=== PATIENT | female | born 2000 | race Caucasian/White ===

== ENCOUNTER → 2022-07-03 | Outpatient (CLI) | payer BC ==
[2022-07-03 18:34] LABS: HCT 31.2 % (37.2-46.3); HGB 10.2 g/dL (12.0-15.0); MCH 30.1 pg (27.0-32.0); MCHC 32.7 g/dL (32.0-37.0); Mean Platelet Volume 9.7 fL (9.5-12.2); NRBC Per 100 WBC 0 /100 WBCS (0.0-0.0); Platelet Count 276 X 10*3/uL (140-440); RBC 3.39 X 10*6/uL (4.10-5.20); RDW 12.9 % (11.5-14.5); WBC 12.04 X 10*3/uL (4.50-10.00)
== END | disposition home or self-care (01) ==
LOC: LABWHC1 10:45
PROVIDERS: ATTEND Obstetrics & Gynecology
DX: Z34.82 Encounter for supervision of other normal pregnancy, second trimester (principal); Z3A.00 Weeks of gestation of pregnancy not specified
CPT/HCPCS: 36415; 82950; 85027

== ENCOUNTER → 2022-07-12 | Outpatient (CLI) | payer BC ==
[2022-07-12 13:10] LABS: Glucose 3 Hour, Gest 145 mg/dL
== END | disposition home or self-care (01) ==
LOC: EEVIPCON 08:24 → LABWHC1 08:24
PROVIDERS: ATTEND Obstetrics & Gynecology
DX: O99.810 Abnormal glucose complicating pregnancy (principal); Z3A.00 Weeks of gestation of pregnancy not specified
CPT/HCPCS: 36415; 82951; 82952

== ENCOUNTER 2022-07-27 12:34 | Outpatient (CLI) | payer BC ==
[2022-07-27 13:38] VITALS: BP 134/73; PULSE 85; RESP 16; TEMP 98
--- NOTE | 2022-08-03 08:57 | P.MSEPDOC ---
Presenting Problems - Arrival Data Date of Arrival on Unit: 07/27/22 Time of Arrival on Unit: 12:34 Mode of Transport: Ambulatory - Complaint OB-Reason for Admission/Chief Complaint: Decreased Movement Medical History - Information : 1 Para: 0 Term: 0 : 0 Abortions: Spontaneous or Elective: 0 Number of Living Children: 0 - Gestational Age Gestational Age by MINA (wks/days): 29 Weeks and 4 Days - History Complications: Multiple Review of Systems - Review of Systems Constitutional: No problems Breast: No problems ENT: No problems Cardiovascular: No problems Respiratory: No problems Gastrointestinal: No problems Genitourinary: No problems Musculoskeletal: No problems Neurological: No problems Skin: No problems Vital Signs - Temperature Temperature: 98 F Temperature Source: Temporal Artery Scan - Pulse Right Sitting Pulse Rate: 85 Pulse Assessment Method: Automatic Cuff - Respirations Respiratory Rate: 16 Oxygen Delivery Method: Room Air - Blood Pressure Right Arm Blood Pressure: 134/73 Blood Pressure Mean: 93 Blood Pressure Source: Automatic Cuff Medical Screen Scoring - Assessment - Baby A Baseline FHR: 125 Heart Rate - NICHD Category: Category I (Normal) NST: Reactive - Assessment - Baby B Baseline FHR: 135 Heart Rate - NICHD Category: Category I (Normal) NST: Reactive Physician Notification - Physician Notified Physician Notified Date: 07/27/22 Physician Notified Time: 13:24 Physician: Sugey Peacock Order Received: Yes (d/c home) Maternal Triage Index - Prompt/Priority 3 Prompt Priority 3: Yes Criteria Met for Priority 3: decreased movmeent, reactive nst for twins Disposition - Disposition OB Disposition: Discharge to home Discharge Date: 07/27/22 Discharge Time: 13:32 I agree with the RN Medical Screening Exam: Yes Case reviewed; plan agreed upon as documented in EMR&OBIX.: Yes Diagnosis: DECREASED MOVEMENTS, THIRD TRIMESTER, FETUS 1
== END 2022-07-27 13:32 | disposition home or self-care (01) ==
LOC: FBPOP 12:34
PROVIDERS: ATTEND Obstetrics & Gynecology
DX: O36.8130 Decreased fetal movements, third trimester, not applicable or unspecified (principal); O36.8931 Maternal care for other specified fetal problems, third trimester, fetus 1; Z3A.29 29 weeks gestation of pregnancy; Z88.0 Allergy status to penicillin
CPT/HCPCS: 59025; 99213

== ENCOUNTER 2022-09-13 14:11 | Outpatient (CLI) | payer BC ==
[2022-09-13 17:20] VITALS: BP 144/78; PULSE 98; RESP 16; TEMP 97.8
--- NOTE | 2022-09-17 23:26 | P.MSEPDOC ---
Presenting Problems - Arrival Data Date of Arrival on Unit: 09/13/22 Time of Arrival on Unit: 14:11 Mode of Transport: Ambulatory - Complaint OB-Reason for Admission/Chief Complaint: NST Medical History - Information : 1 Para: 0 Term: 0 : 0 Abortions: Spontaneous or Elective: 0 Number of Living Children: 0 - Gestational Age Gestational Age by MINA (wks/days): 36 Weeks and 3 Days - History Complications: GDM Review of Systems - Review of Systems Constitutional: No problems Breast: No problems ENT: No problems Cardiovascular: No problems Respiratory: No problems Gastrointestinal: No problems Genitourinary: No problems Musculoskeletal: No problems Neurological: No problems Skin: No problems Vital Signs - Temperature Temperature: 97.8 F Temperature Source: Temporal Artery Scan - Pulse Pulse Oximetery Pulse Rate: 98 Pulse Assessment Method: Pulse Oximetry - Respirations Respiratory Rate: 16 Oxygen Delivery Method: Room Air O2 Sat by Pulse Oximetry: 97 - Blood Pressure Right Arm Blood Pressure: 144/78 Blood Pressure Mean: 100 Blood Pressure Source: Automatic Cuff Medical Screen Scoring - Assessment - Baby A Baseline FHR: 140 Heart Rate - NICHD Category: Category I (Normal) NST: Reactive - Assessment - Baby B Baseline FHR: 125 Heart Rate - NICHD Category: Category I (Normal) NST: Reactive Physician Notification - Physician Notified Physician Notified Date: 09/13/22 Physician Notified Time: 14:11 Physician: Sugey Peacock Order Received: No (Per written order discharge when reactive.) Maternal Triage Index - Maternal Triage Index Presenting for scheduled procedure w/no complaint: Yes - Scheduled/Requesting Priority 5 Scheduled/Requesting Priority 5: No Disposition - Disposition OB Disposition: Discharge to home Discharge Date: 09/13/22 Discharge Time: 15:02 I agree with the RN Medical Screening Exam: Yes Case reviewed; plan agreed upon as documented in EMR&OBIX.: Yes Diagnosis: TWIN , MONOCHORIONIC/DIAMNIOTIC, THIRD TRIMESTER
== END 2022-09-13 15:02 | disposition home or self-care (01) ==
LOC: FBPOP 14:11
PROVIDERS: ATTEND Obstetrics & Gynecology
DX: O30.013 Twin pregnancy, monochorionic/monoamniotic, third trimester (principal); O24.419 Gestational diabetes mellitus in pregnancy, unspecified control; Z3A.36 36 weeks gestation of pregnancy; Z88.0 Allergy status to penicillin
CPT/HCPCS: 59025; 99213

== ENCOUNTER 2022-09-17 05:42 | Inpatient (IN) | payer BC ==
--- NOTE | 2022-09-16 16:52 | P.HPOB ---
History of Present Illness H&P Date: 09/16/22 Chief Complaint: Monochorionic/diamniotic twin gestation This is a 22 y.o. female, 2, para 0, with an estimated date of confinement of 10/08/2022, estimated gestational age of 37-0/7 weeks, who presents for induction of labor due to monochorionic, diamniotic twin gestation. She has seen [facility] and has been getting regular surveillance. She also has gestational diabetes and her sugars have been controlled with Metformin. Her last ultrasound in the office showed twin A, vtx, 6#8oz, and twin B, vtx, 5#8oz with a 15.9% discordancy. Prior to this ultrasound, growth had been concordant. She is feeling irregular contractions and pressure. [facility] has recommended delivery between 34-0/7 and 37-6/7 weeks. labs: Hepatitis B surface antigen-neg RPR-NR Rubella-immune Blood type-A+ Antibody screen-neg HIV-NR Hemoglobin-12 Toxoplasma-neg Random glucose-75 1 hr. GTT-154 3 hr. GTT->2 values high GBS-neg OB Hx: . 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 Works in [email or web address] and [employer]. Review of Systems Constitutional: Denies chills, Denies fever Eyes: denies blurred vision, denies pain Ears, nose, mouth and throat: Denies headache, Denies sore throat Cardiovascular: Denies chest pain, Denies shortness of breath Respiratory: Denies cough Gastrointestinal: Reports abdominal pain (irregular contractions) Genitourinary: Reports pelvic pain, Reports Musculoskeletal: Reports low back pain Integumentary: Denies pruritus, Denies rash Neurological: Denies numbness, Denies weakness Psychiatric: Denies anxiety, Denies depression Past Medical History Additional Past Medical History / Comment(s): Gestational diabetes-on Metformin History of Any Multi-Drug Resistant Organisms: None Reported Past Surgical History: No Surgical Hx Reported Past Anesthesia/Blood Transfusion Reactions: No Reported Reaction Past Psychological History: No Psychological Hx Reported Smoking Status: Former smoker Past Alcohol Use History: None Reported Past Drug Use History: None Reported - Past Family History Mother Family Medical History: Hypertension Medications and Allergies Home Medications Medication Instructions Recorded Confirmed Type Aspirin [Children's Aspirin] 81 mg PO DAILY 08/09/22 09/13/22 History metFORMIN HCL 500 mg PO AC-BRKFST 08/09/22 09/13/22 History Vit No.179/Iron/Folic 1 each PO DAILY 08/20/22 09/13/22 History [ Tablet] metFORMIN HCL 1,000 mg PO AC-SUPPER 09/16/22 09/16/22 History Allergies Allergy/AdvReac Type Severity Reaction Status Date / Time Penicillins Allergy Rash/Hives Verified 09/13/22 14:27 Exam Osteopathic Statement: *. No significant issues noted on an osteopathic structural exam other than those noted in the History and Physical/Consult. HEENT: within normal limits Heart: regular rate and rhythm Lungs: clear to auscultation bilaterally Abdomen: , non-tender heart tones: A-130's, B-140's by doppler Cervix: 2.5 cm/80%/-2 Extremities: neg. Elizabeth's Assessment and Plan (1) 37 weeks gestation of Status: Acute Code(s): Z3A.37 - 37 WEEKS GESTATION OF SNOMED Code(s): 24923598 (2) Monochorionic diamniotic twin gestation Status: Acute Code(s): O30.039 - TWIN , MONOCHORIONIC/DIAMNIOTIC, UNSP TRIMESTER SNOMED Code(s): 60288640 (3) Gestational diabetes Status: Acute Code(s): O24.419 - GESTATIONAL DIABETES MELLITUS IN , UNSP CONTROL SNOMED Code(s): 18510983 Plan: Proceed with oxytocin induction of labor. Expectant management. Epidural anesthesia if desired. Patient has been counseled on risk of 2nd twin turning after 1st twin delivers which may require emergent section. She would like to attempt vaginal delivery. Will monitor sugars while in labor.
[2022-09-17] MEDS: LACTATED RINGERS 1,000 ML IV SCH ×2 (05:55→12:22)
[2022-09-17 06:03] LABS: Glucose,Whole Blood 92 mg/dL (70-110)
[2022-09-17] MEDS ORDERED: OXYTOCIN 30 UNITS/500 ML NS 30 UNIT in SALINE 1 500ML.BAG IV SCH ×2 (06:03→23:04)
[2022-09-17] MEDS ORDERED: LIDOCAINE 1% (10MG/ML) FOR IV START INTRADERMA PRN (06:03)
[2022-09-17] MEDS ORDERED: LIDOCAINE 0.5% (PF) 5 MG/ML (50 ML SDV) SQ PRN (06:03)
[2022-09-17] MEDS ORDERED: TRANEXAMIC ACID IN NACL,ISO-OS 1,000 MG in EMPTY BAG 1 BAG IV PRN (06:03)
[2022-09-17] MEDS ORDERED: miSOPROStoL 200 MCG TAB PO PRN (06:03)
[2022-09-17] MEDS ORDERED: TERBUTALINE 1 MG/ML VIAL SQ PRN (06:03)
[2022-09-17] MEDS ORDERED: CARBOPROST TROMETHAMINE 250 MCG/ML 1 ML AMP IM PRN (06:03)
[2022-09-17] MEDS ORDERED: OXYTOCIN 10 UNIT/ML 1 ML VIAL IM PRN (06:03)
[2022-09-17] MEDS ORDERED: METHYLERGONOVINE 0.2 MG/ML 1 ML AMP IM PRN (06:03)
[2022-09-17 06:21] LABS: Basophils % (A) 0 %; Eosinophils # (A) 0.1 k/uL (0-0.7); Eosinophils % (A) 2 %; HCT 32.6 % (34.0-46.0); HGB 11.1 gm/dL (11.4-16.0); Lymphocytes # (A) 2.1 k/uL (1.0-4.8); Lymphocytes % (A) 28 %; MCH 30.4 pg (25.0-35.0); MCV 89.4 fL (80.0-100.0); Mean Platelet Volume 9.2; Monocytes # (A) 0.5 k/uL (0-1.0); Monocytes % (A) 7 %; Neutrophils # (A) 4.6 k/uL (1.3-7.7); Neutrophils % (A) 61 %; Platelet Count 212 k/uL (150-450); RBC 3.64 m/uL (3.80-5.40); RDW 13.1 % (11.5-15.5); WBC 7.4 k/uL (3.8-10.6)
[2022-09-17 08:05] LABS: Glucose,Whole Blood 79 mg/dL (70-110)
[2022-09-17] MEDS: BUTORPHANOL 1 MG/ML 1 ML VIAL IV PRN ×3 (10:36→14:13)
[2022-09-17 11:43] LABS: Glucose,Whole Blood 84 mg/dL (70-110)
[2022-09-17 12:17] LABS: Glucose,Whole Blood 77 mg/dL (70-110)
[2022-09-17] MEDS ORDERED: ROPIVACAINE 100 MG, fentaNYL (PF). 200 MCG in SODIUM CHLORIDE 0.9% 76 ML EPIDURAL ONE (15:59)
[2022-09-17] MEDS ORDERED: ROPIVACAINE 5 MG/ML 20 ML AMPULE ONE (16:15)
[2022-09-17] MEDS ORDERED: fentaNYL (PF) 50 MCG/ML 5 ML AMP ONE (16:15)
[2022-09-17] MEDS ORDERED: SODIUM CHLORIDE 0.9% 100 ML BAG ONE ×2 (16:15→21:56)
[2022-09-17 19:20] LABS: Glucose,Whole Blood 78 mg/dL (70-110)
[2022-09-17] MEDS ORDERED: CITRIC ACID-SODIUM CITRATE 15 ML CUP PO ONE (21:43)
[2022-09-17] MEDS ORDERED: SUCCINYLCHOLINE CHLORIDE 200 MG/10 ML VIAL IV ONE (21:56)
[2022-09-17] MEDS ORDERED: PROPOFOL 10 MG/ML 20 ML VIAL IV ONE (21:56)
[2022-09-17] MEDS ORDERED: OXYTOCIN 30 UNITS/500 ML NS BAG IV ONE (21:56)
[2022-09-17] MEDS ORDERED: ceFAZolin 1,000 MG VIAL ONE (21:56)
[2022-09-17] MEDS ORDERED: KETOROLAC 15 MG/ML 1 ML VIAL ONE (21:56)
[2022-09-17] MEDS ORDERED: ONDANSETRON 4 MG/2 ML VIAL ONE (21:56)
[2022-09-17] MEDS ORDERED: fentaNYL (PF) 50 MCG/ML 2 ML AMP ONE (21:56)
[2022-09-17] MEDS ORDERED: diphenhydrAMINE 50 MG CAP PO PRN (23:04)
[2022-09-17] MEDS ORDERED: diphenhydrAMINE 25 MG CAP PO PRN (23:04)
[2022-09-17] MEDS ORDERED: METOCLOPRAMIDE 5 MG/ML 2 ML VIAL IVP PRN (23:04)
[2022-09-17] MEDS ORDERED: diphenhydrAMINE 50 MG/ML 1 ML VIAL IVP PRN ×2 (23:04)
[2022-09-17] MEDS ORDERED: ONDANSETRON 4 MG/2 ML VIAL IVP PRN (23:04)
[2022-09-17] MEDS ORDERED: HYDROmorphone 1 MG/ML 1 ML SYRINGE IVP PRN (23:04)
[2022-09-17] MEDS ORDERED: LANOLIN CREAM 5 GM TUBE TOPICAL PRN (23:04)
[2022-09-17] MEDS ORDERED: HYDROmorphone 0.5 MG/0.5 ML SYRINGE IVP PRN (23:04)
[2022-09-17] MEDS ORDERED: ZOLPIDEM 5 MG TAB PO PRN (23:04)
[2022-09-17] MEDS ORDERED: NALOXONE 0.4 MG/ML 1 ML VIAL IV PRN (23:04)
--- NOTE | 2022-09-17 23:13 | P.OP ---
Date of Procedure: 09/17/22 Preoperative Diagnosis: 1. Intrauterine at 37-0/7 weeks. 2. Monochorionic diamniotic twin gestation. 3. Gestational diabetes. 4. Failure to progress. Postoperative Diagnosis: Same Procedure(s) Performed: Primary low transverse section Anesthesia: GETA, epidural Surgeon: Sugey Peacock Stock Saw Operator #1: Rubina Ortega Estimated Blood Loss (ml): 950 Pathology: other (Placentas) Condition: stable Disposition: floor Indications for Procedure: This is a 22-year-old female 2 para 0 with monochorionic diamniotic twin gestation at 37-0/7 weeks who presented for induction of labor. Her was complicated by gestational diabetes controlled with metformin. She underwent oxytocin induction of labor and did receive initially Stadol followed by epidural. She reached a maximum of 9 cm and then her cervix became swollen. Her epidural started to fail at this point in she was requesting delivery. She was counseled regarding section and wishes to proceed with delivery. I have discussed the risks, benefits, and alternative therapies for the above- mentioned procedure and for both sedation/anesthesia as well as necessary blood products administration, if indicated, as they pertain to this patient. The patient has indicated her understanding and acceptance of the risks and procedures discussed. Operative Findings: Baby A is a viable male in the vertex presentation with scores of 8 at 1 minute and 9 at 5 minutes and weight of 6 lbs. 3 oz. There was noted to be some caput. Baby B is noted to be in a face/Chin presentation and did deliver with scores of 8 at 1 minute and 9 at 5 minutes and weight of 5 lbs. 6 oz.. The placenta was then delivered intact with three-vessel cords noted on both cords. A thin membrane was noted. There is noted to be a fairly large submucosal fibroid noted anteriorly. Otherwise uterus tubes and ovaries are noted to be normal. Description of Procedure: The patient is taken to the operating room where she is placed in the dorsal supine position with leftward tilt after epidural anesthesia is bolused. She is prepped and draped in the normal sterile fashion. Skin was tested and found to be inadequately anesthetized. She was therefore given general anesthesia. A Pfannenstiel skin incision was made with a scalpel. A second knife was used to carry the incision down to the underlying layer of fascia. The fascia was nicked in the midline with a scalpel and then extended laterally bilaterally with Lerma scissors. The anterior lip of the fascia was grasped with 2 Kari clamps and then dissected off the underlying rectus muscle in the midline with Leram scissors. The inferior aspect of the fascial incision was grasped with 2 Kari clamps and dissected off the underlying rectus muscle and the midline with Lerma scissors. Next the peritoneum layer was tented up with 2 hemostats and then entered sharply with the scalpel. The incision is extended superiorly and inferiorly with Metzenbaum scissors. Next a DeLee retractor is placed. The vesicouterine peritoneum is entered sharply with Metzenbaum scissors and extended laterally bilaterally with Metzenbaum scissors and then the bladder flap is pushed inferiorly. The lower uterine segment is incised in transverse fashion with the scalpel and then bluntly entered with a hemostat. Clear fluid is noted. The incision was then extended laterally bilaterally with 2 fingers. Next the baby A's head is delivered through the incision. Nose and mouth are bulb suctioned. The remainder of the is easily delivered and placed on mother's abdomen. Cord is clamped and cut. Infant is taken to warmer by nursing staff. Next the baby B head is palpated and brought to the incision. A hemostat is used to rupture the bag of water and clear fluid is noted. At this point the baby is presenting in almost a chin/face lie. Infant's head is rotated so that the back of the head delivers first and then the remainder the is delivered, cord is clamped and cut, and is taken to warmer for evaluation. Uterine fundus is gently massaged and placenta is delivered manually. Uterus is exteriorized and cleared of all clots and debris. There is noted to be a fairly large submucosal fibroid anteriorly inside the uterus. Uterine incision is closed with 0 Vicryl suture in a running locked fashion. A second layer of 0 Vicryl suture is used in a running fashion for hemostasis. Once adequate hemostasis as assured, the vesicouterine peritoneum is reapproximated with 2-0 Vicryl suture in a running fashion. Posterior cul-de-sac is suctioned of all clots and debris. Uterus is returned to the abdomen. Incision is noted to be hemostatic. Peritoneal layer is closed with 0 Vicryl suture in a running fashion. Muscle layer is reapproximated with 0 Vicryl suture in interrupted fashion. Fascia layer is then closed with 0 PDS suture with 2 sutures meeting in the midline and the knots buried in either side and in the midline. The subcutaneous tissue was then closed with 2-0 Vicryl suture. Skin layer was then closed with darrell. All sponge and needle counts are correct. The patient is taken to recovery room in stable condition.
[2022-09-17] MEDS ORDERED: HYDROmorphone PCA 10 MG/50 ML BAG IV PRN (23:14)
[2022-09-18] MEDS: LACTATED RINGERS 1,000 ML IV SCH ×2 (01:57→03:15)
[2022-09-18] MEDS: ACETAMINOPHEN TAB 500 MG TAB PO SCH ×4 (04:07→21:54)
[2022-09-18] MEDS: IBUPROFEN 600 MG TAB PO SCH ×3 (04:08→20:40)
--- NOTE | 2022-09-18 07:38 | P.PNOBGPC ---
Subjective - Subjective Principal diagnosis: Status post primary low transverse section POD#1 Interval history: Patient is doing well. Pain is fairly well controlled at this time. She is only used her CASHIER PAYMENTS RECEIVED couple times. She has not ambulated yet. Bleeding has been moderate. She denies any flatus yet. Patient reports: Reports pain well controlled, Denies ambulating normally [place]: doing well, other (Baby B is in level I nursery with some sugar issues) Objective - Vital Signs Latest vital signs: Vital Signs Temp Pulse Resp BP Pulse Ox 09/18/22 03:30 98.6 F 92 14 128/72 96 09/18/22 00:54 99.4 F 109 H 18 133/71 94 L 09/18/22 00:24 107 H 18 136/82 97 09/17/22 23:54 111 H 18 127/76 95 09/17/22 23:39 105 H 18 122/83 97 09/17/22 23:24 100 18 144/74 98 09/17/22 23:14 99 09/17/22 23:09 111 H 18 136/98 99 09/17/22 22:54 97.9 F 114 H 18 132/92 99 Intake and Output 09/17/22 09/18/22 09/18/22 22:59 06:59 14:59 Intake Total 500 Output Total 950 1161 Balance -950 -661 Intake: IV 500 Invasive Line 1 500 Output: Urine 1000 Output, Quantitative 950 161 Blood Loss Other: Voiding Method Indwelling Catheter - Exam Extremities: Present: normal. Absent: tenderness Abdomen: Present: normal appearance, soft (Faint bowel sounds 4). Absent: distention, tenderness Incision: Present: normal, dry, intact. Absent: erythematous Uterus: Present: normal, firm. Absent: tenderness Assessment and Plan Assessment: Status post primary low transverse section for delivery of twin gestation postoperative day #1 (1) 37 weeks gestation of Current Visit: No Status: Acute Code(s): Z3A.37 - 37 WEEKS GESTATION OF SNOMED Code(s): 35466115 (2) Monochorionic diamniotic twin gestation Current Visit: No Status: Acute Code(s): O30.039 - TWIN , MONOCHORIONIC/DIAMNIOTIC, UNSP TRIMESTER SNOMED Code(s): 98798758 (3) Gestational diabetes Current Visit: No Status: Acute Code(s): O24.419 - GESTATIONAL DIABETES MELLITUS IN , UNSP CONTROL SNOMED Code(s): 05377173 Plan: Will advance diet as tolerated after flatus. Will ambulate and remove catheter this morning. Will switch to oral pain medications today.
[2022-09-18 07:43] LABS: Basophils % (A) 0 %; Eosinophils % (A) 0 %; HCT 26.9 % (34.0-46.0); Lymphocytes # (A) 1.3 k/uL (1.0-4.8); Lymphocytes % (A) 10 %; MCH 30.1 pg (25.0-35.0); MCHC 33.2 g/dL (31.0-37.0); MCV 90.7 fL (80.0-100.0); Mean Platelet Volume 8.8; Monocytes # (A) 0.5 k/uL (0-1.0); Monocytes % (A) 4 %; Neutrophils # (A) 11.4 k/uL (1.3-7.7); Neutrophils % (A) 85 %; Platelet Count 172 k/uL (150-450); RBC 2.96 m/uL (3.80-5.40); RDW 13.4 % (11.5-15.5); WBC 13.4 k/uL (3.8-10.6)
[2022-09-18] MEDS: SENNOSIDES-DOCUSATE SODIUM 1 EACH TAB PO SCH ×2 (07:48→20:40)
[2022-09-18] MEDS: KETOROLAC 15 MG/ML 1 ML VIAL IVP SCH (07:48)
[2022-09-18 08:16] LABS: HGB 8.9 gm/dL (11.4-16.0)
[2022-09-18] MEDS: ACETAMINOPHEN IV (For NPO) 1,000 MG in EMPTY BAG 1 BAG IVPB SCH ×2 (08:54→14:37)
[2022-09-18] MEDS: SIMETHICONE 80 MG CHEWABLE PO PRN (17:56)
[2022-09-19] MEDS: ACETAMINOPHEN TAB 500 MG TAB PO SCH ×4 (02:00→14:56)
[2022-09-19] MEDS: IBUPROFEN 600 MG TAB PO SCH ×6 (04:22→23:43)
[2022-09-19] MEDS: SENNOSIDES-DOCUSATE SODIUM 1 EACH TAB PO SCH ×2 (08:02→19:47)
[2022-09-19] MEDS: SIMETHICONE 80 MG CHEWABLE PO PRN (08:03)
--- NOTE | 2022-09-19 08:54 | P.PNOBGPC ---
Subjective - Subjective Principal diagnosis: Status post primary postoperative day #2 Interval history: Patient is doing better. She is passing some flatus but no bowel movement yet. She is urinating without difficulty. Pain is fairly well controlled with oral pain medications. She is working on breast-feeding baby A. Baby B is in the nursery. Patient reports: Reports appetite normal, Reports voiding normally, Reports pain well controlled, Reports ambulating normally : doing well, nursing well, other (Baby B is in level I nursery) Objective - Vital Signs Latest vital signs: Vital Signs Temp Pulse Resp BP Pulse Ox 09/19/22 08:26 97.6 F 75 18 138/80 98 09/18/22 23:24 98.3 F 86 18 126/70 09/18/22 16:00 98.3 F 94 18 114/63 96 09/18/22 12:00 98.4 F 95 16 119/67 95 Intake and Output 09/18/22 09/19/22 09/19/22 22:59 06:59 14:59 Intake Total 500 Balance 500 Intake: Oral 500 - Exam Extremities: Present: normal. Absent: tenderness, edema Abdomen: Present: normal appearance, soft (Positive bowel sounds 4). Absent: distention, tenderness Incision: Present: normal, dry, intact. Absent: erythematous Uterus: Present: normal, firm, tenderness Assessment and Plan Assessment: Status post primary low transverse section postoperative day #2 (1) 37 weeks gestation of Current Visit: No Status: Acute Code(s): Z3A.37 - 37 WEEKS GESTATION OF SNOMED Code(s): 62523169 (2) Monochorionic diamniotic twin gestation Current Visit: No Status: Acute Code(s): O30.039 - TWIN , MONOCHORIONIC/DIAMNIOTIC, UNSP TRIMESTER SNOMED Code(s): 29731009 (3) Gestational diabetes Current Visit: No Status: Acute Code(s): O24.419 - GESTATIONAL DIABETES MELLITUS IN , UNSP CONTROL SNOMED Code(s): 90061532 Plan: Continue with postoperative and care. Will continue ambulation. Oral pain medications.
[2022-09-19] MEDS: KETOROLAC 15 MG/ML 1 ML VIAL IVP SCH ×4 (09:48→12:43)
[2022-09-19] MEDS: LACTATED RINGERS 1,000 ML IV SCH ×5 (09:48→22:23)
[2022-09-20] MEDS: ACETAMINOPHEN TAB 500 MG TAB PO SCH ×6 (00:54→20:50)
[2022-09-20] MEDS: IBUPROFEN 600 MG TAB PO SCH ×3 (06:48→18:59)
[2022-09-20 07:54] VITALS: RESP 16
[2022-09-20] MEDS: SENNOSIDES-DOCUSATE SODIUM 1 EACH TAB PO SCH ×2 (09:01→20:50)
--- NOTE | 2022-09-20 09:27 | P.PNOBGPC ---
Subjective - Subjective Principal diagnosis: Status post primary postoperative day #3 Interval history: Patient is doing okay. She is ambulating. She is passing some flatus but no bowel movement yet. Her pain has been fairly well-controlled with ibuprofen and Tylenol. She has used oxycodone a couple times. She is working on breast- feeding but is supplementing a little bit of formula for baby A. Baby B is still in level I nursery. Bleeding has been minimal. Patient reports: Reports appetite normal, Reports voiding normally, Reports ambulating normally [place]: doing well, other (Baby B is in level I nursery) Objective - Vital Signs Latest vital signs: Vital Signs Temp Pulse Resp BP Pulse Ox 09/20/ 07:51 97.9 F 81 16 129/75 98 09/20/22 00:00 98 F 70 18 126/74 99 09/19/22 15:15 97.8 F 89 18 125/80 98 Intake and Output 09/19/09/20/22 09/20/22 22:59 06:59 14:59 Other: # Voids 1 - Exam Extremities: Present: normal. Absent: tenderness Abdomen: Present: normal appearance, soft (Positive bowel sounds 4). Absent: distention, tenderness Incision: Present: normal, dry, intact. Absent: erythematous Uterus: Present: normal, firm. Absent: tenderness Assessment and Plan Assessment: Status post primary low transverse section postoperative day #3 (1) 37 weeks gestation of Current Visit: No Status: Acute Code(s): Z3A.37 - 37 WEEKS GESTATION OF SNOMED Code(s): 83177176 (2) Monochorionic diamniotic twin gestation Current Visit: No Status: Acute Code(s): O30.039 - TWIN , MONOCHORIONIC/DIAMNIOTIC, UNSP TRIMESTER SNOMED Code(s): 40783944 (3) Gestational diabetes Current Visit: No Status: Acute Code(s): O24.419 - GESTATIONAL DIABETES MELLITUS IN , UNSP CONTROL SNOMED Code(s): 57232764 Plan: Continue with postoperative and care today. Anticipate discharge home tomorrow. Continue with stool softeners.
[2022-09-20] MEDS: SIMETHICONE 80 MG CHEWABLE PO PRN ×3 (09:52→18:59)
[2022-09-21] MEDS: IBUPROFEN 600 MG TAB PO SCH ×3 (00:45→14:53)
[2022-09-21] MEDS: ACETAMINOPHEN TAB 500 MG TAB PO SCH ×2 (03:18→09:42)
[2022-09-21 08:00] VITALS: BP 129/77; PULSE 80; TEMP 98.5
--- NOTE | 2022-09-21 08:44 | P.DS ---
Providers Date of admission: 09/17/22 05:42 Expected date of discharge: 09/21/22 Attending physician: Sugey Peacock Primary care physician: Stated None - Discharge Diagnosis(es) (1) 37 weeks gestation of Current Visit: No Status: Acute (2) Monochorionic diamniotic twin gestation Current Visit: No Status: Acute (3) Gestational diabetes Current Visit: No Status: Acute Hospital Course: This is a 22-year-old female 2 para 0 at 37-0/7 weeks who presented for induction of labor due to maternal chorionic diamniotic twin gestation. She also had gestational diabetes controlled on metformin. She underwent oxytocin induction of labor and reached a maximum of 9 cm and began swelling on her cervix. In addition her epidural stopped working and she was in severe pain. She requested delivery. She underwent a primary low transverse section under general anesthesia on 09/17/2022. Baby A was a viable male infant in the vertex presentation with scores of 8 at 1 minute and 9 at 5 minutes and weight of 6 lbs. 3 oz. and baby B was a viable male infant in the vertex but in a face presentation with scores of 8 at 1 minute and 9 at 5 minutes and weight of 5 lbs. 6 oz. Her postoperative course has been essentially uncomplicated. She has been ambulating. She is passing flatus and bowel movement. She is urinating without difficulty. Her pain is fairly well controlled mostly with ibuprofen and Tylenol. She has used oxycodone a couple times. Baby A has been bottle feeding breast milk and baby B is still in level I nursery. Her bleeding has been minimal. Vital signs are stable. Abdomen is soft with positive bowel sounds 4. Incision is clean dry and intact with darrell in place. Extremities show negative [place]. Impression is status post primary low transverse section for delivery of 2 viable male infants. Plan is to discharge home today. Routine postoperative and instructions are given. She will be given a prescription for ibuprofen and a few oxycodone. She has been counseled regarding opioid use and has signed a consent form. She is advised follow-up in the office in 1 week for a postoperative check and in 6 weeks for check. She is advised to call the office if she has any further questions or concerns prior to her appointment time. Procedures: Oxytocin induction of labor Primary low transverse section on 09/17/2022 Patient Condition at Discharge: Stable Plan - Discharge Summary New Discharge Prescriptions: New Ibuprofen [Motrin] 600 mg PO Q6H #60 tab oxyCODONE HCL [OxyIR] 5 mg PO Q4HR PRN #5 tab PRN Reason: Pain Scale 4 - 6 Continue Vit No.179/Iron/Folic [ Tablet] 1 each PO DAILY Discontinued metFORMIN HCL 1,000 mg PO AC-SUPPER Aspirin [Children's Aspirin] 81 mg PO DAILY metFORMIN HCL 500 mg PO AC-BRKFST Discharge Medication List Vit No.179/Iron/Folic [ Tablet] 1 each PO DAILY 08/20/22 [History] Ibuprofen [Motrin] 600 mg PO Q6H #60 tab 09/21/22 [Rx] oxyCODONE HCL [OxyIR] 5 mg PO Q4HR PRN #5 tab 09/21/22 [Rx] Follow up Appointment(s)/Referral(s): Sugey Peacock DO [Doctor of Osteopathic Medicine] - 10/29/22 4:00 pm (Post Op 09-28-2022 at 10:30) Activity/Diet/Wound Care/Special Instructions: Instructions 1. Do not begin any exercise program for 3 weeks. 2. Do not resume sexual relations for 3 weeks or longer if uncomfortable. 3. You may take tub baths or showers at any time. 4. You may use tampons if desired after 3 weeks. 5. Keep the area of episiotomy (stitches) clean and dry. 6. If you are not nursing, wear a good fitting, supportive bra during the day and limit fluid intake for at least 1 week to prevent breast engorgement. 7. Call the office, [phone], within the next week to make appointment for your 6 week checkup if it has not already been made. 8. Report any of the following occurrences to the doctor promptly: a. Heavy, excessive bleeding b. Chills, fever c. Burning or frequency of urination d. Pain or redness and breasts if nursing e. Increasing pain or swelling in episiotomy (stitches). In addition to the above instructions, the following additional should be followed: 1. No heavy lifting or straining (exercising) until after 6 week checkup. 2. Keep abdominal incision clean and dry: You may wear a dressing if more comfortable. 3. Make office appointment for 10 days after going home or as instructed by her doctor. Discharge Disposition: HOME SELF-CARE
[2022-09-21] MEDS: SENNOSIDES-DOCUSATE SODIUM 1 EACH TAB PO SCH (09:42)
== END 2022-09-21 15:50 | disposition home or self-care (01) | DRG 788 ==
LOC: 4FBP 05:42
PROVIDERS: ADMIT Obstetrics & Gynecology; ATTEND Obstetrics & Gynecology
PROC: 3E033VJ Introduction of Other Hormone into Peripheral Vein, Percutaneous Approach (ICD-10-PCS; 2022-09-17)
PROC: 10D00Z1 Extraction of Products of Conception, Low, Open Approach (ICD-10-PCS; principal; 2022-09-17 21:54)
DX: O30.033 Twin pregnancy, monochorionic/diamniotic, third trimester (principal); O24.419 Gestational diabetes mellitus in pregnancy, unspecified control; O32.3XX0 Maternal care for face, brow and chin presentation, not applicable or unspecified; O62.2 Other uterine inertia; O34.13 Maternal care for benign tumor of corpus uteri, third trimester; D25.0 Submucous leiomyoma of uterus; Z37.2 Twins, both liveborn; Z3A.37 37 weeks gestation of pregnancy; Z79.82 Long term (current) use of aspirin; Z79.84 Long term (current) use of oral hypoglycemic drugs; Z87.891 Personal history of nicotine dependence; Z71.89 Other specified counseling
CPT/HCPCS: 83036; 85025; 86850; 86900; 86901; 88307